=== PATIENT | male | born 1930 | race African-American/Black ===

== ENCOUNTER 2016-12-22 18:37 | Emergency (ER) | payer OTHER ==
[~2016-12-22] VITALS: Ht 177.8 cm; Wt 68.0 kg
[2016-12-22] MEDS ORDERED: TETANUS, DIPHTHERIA, PERTUSSIS VAC/PF 0.5ML (>7YR OLD) IM ONE (21:00)
[2016-12-22] MEDS ORDERED: LIDOCAINE HCL 1% 20ML VIAL (Pyxis) INJ MC ONE (21:00)
[2016-12-22] MEDS ORDERED: BACITRACIN ZINC OINT UDPKT TOP ONE (21:00)
[2016-12-22] MEDS ORDERED: PIPERACILLIN/TAZOBACTAM 3.375GM/50ML PREMIX IV ONE (22:30)
[2016-12-23 00:50] VITALS: BP 115/69
== END 2016-12-23 01:45 | disposition short-term general hospital (02) ==
LOC: ER 22:27
DX: S61.012A Laceration without foreign body of left thumb without damage to nail, initial encounter (principal); W45.8XXA Other foreign body or object entering through skin, initial encounter; Y93.89 Activity, other specified; Y92.89 Other specified places as the place of occurrence of the external cause; Y99.8 Other external cause status
CPT/HCPCS: 73130; 90471; 90715; 96374; 99285; J2543; J3490